=== PATIENT | male | born 1955 | race Hispanic/Latino ===

== ENCOUNTER 2019-12-01 14:44 | Outpatient (CLI) | payer OTHER, MEDICARE ==
--- NOTE | 2019-12-01 15:42 | RAD ---
PA AND LATERAL CHEST: HISTORY: Cough, flu-like symptoms. FINDINGS: Heart size is within normal limits. Postop sternotomy changes are seen. The aorta is mildly tortuou s. Some minimal interstitial changes are seen in the lung bases slightly more prominent in the left base. I cannot exclude this is very early infiltrate. IMPRESSION: Slightly increased interstitial markings in the bases, perhaps some infiltrative change in the left l ower lobe. Clinical correlation is suggested. Followup film is suggested as indicated. POS: RAAD
== END 2019-12-01 14:45 | disposition home or self-care (01) ==
LOC: SCSRAD 14:44
PROVIDERS: ATTEND Nurse Practitioner Family
DX: J40 Bronchitis, not specified as acute or chronic (principal); R68.89 Other general symptoms and signs; J98.4 Other disorders of lung
CPT/HCPCS: 71046

== ENCOUNTER 2019-12-01 21:31 | Emergency (ER) | payer OTHER, MEDICARE ==
[~2019-12-01 21:31] MED LIST: Iopamidol-370 76% 500 ML 1 ML ONE
[2019-12-01] MEDS ORDERED: Promethazine 25 MG TAB ONE (22:14)
[2019-12-01 22:24] LABS: #Basophils 0.1 thou/uL (0.0-0.2); #Eosinphils 0.4 thou/uL (0.0-0.7); #Lymphocytes 1.5 thou/uL (1.20-3.40); #Monocytes 0.7 thou/uL (0.11-0.59); #Neutrophils 10.7 thou/uL (1.40-6.50); %Basophils 0.4 % (0.0-1.0); %Eosinophils 3.2 % (0.0-10.0); %Lymphocytes 10.9 % (21.0-51.0); %Monocytes 4.9 % (0.0-10.0); %Neutrophils 80.6 % (42.0-75.0); Hemoglobin 12.8 g/dL (14.0-18.0); Mean Corpuscular HGB CONC 33.3 g/dL (32.0-36.0); Mean Corpuscular Hemoglobin 28.4 pg (27.0-31.0); Mean Corpuscular Volume 85.1 fL (78.0-98.0); Mean Platelet Volume 8.9 fL (7.4-10.4); Platelet Count 181 thou/uL (130-400); RBC Distribution Width 12.1 % (11.5-14.5); Red Blood Cell (RBC) Count 4.53 mill/uL (4.70-6.10); White Blood Cell (WBC) Count 13.2 thou/uL (4.8-10.8)
[2019-12-01 22:46] LABS: ALT (SGPT) 30 U/L (8-55); AST (SGOT) 18 U/L (5-34); Albumin 3.8 g/dL (3.4-4.8); Alkaline Phosphatase 260 U/L (40-110); Anion Gap 15 mmol/L (10-20); BUN (Urea Nitrogen) 34 mg/dL (8.4-25.7); Bilirubin, Total 0.5 mg/dL (0.2-1.2); Calc. Creatinine Clearance 0 mL/min (70-130); Calcium 9.6 mg/dL (7.8-10.44); Carbon Dioxide 24 mmol/L (23-31); Chloride 103 mmol/L (98-107); Estimated GFR-MDRD 43; Globulin 3.2 g/dL (2.4-3.5); Glucose 179 mg/dL (80-115); Lipase 22 U/L (8-78); Potassium 4.4 mmol/L (3.5-5.1); Sodium 138 mmol/L (136-145)
--- NOTE | 2019-12-01 23:44 | CT ---
CT ABDOMEN AND PELVIS WITH IV CONTRAST: 12/01/19 HISTORY: Abdominal pain, nausea, vomiting, diarrhea. COMPARISON: 11/13/15. Chronic changes of the lung bases again seen. The liver, spleen, pancreas, adrenal glands are normal. Cysts on the kidneys and scarring in the left superior pole are again noted. No free air, free fluid or lymphadenopathy is seen in the abdomen or pelvis. There are vascular calci fications without evidence of aneurysmal dilatation of the abdominal aorta. No calcified gallstones a re seen. There are degenerative changes in the spine. There is small bowel feces sign without significant bowel loop dilatation. A normal appearing appendi x is present. IMPRESSION: Probable developing/early small bowel obstruction. POS: OFF
== END 2019-12-02 00:50 | disposition home or self-care (01) ==
LOC: ERS 21:31
DX: A08.4 Viral intestinal infection, unspecified (principal); E86.0 Dehydration; I10 Essential (primary) hypertension; E11.9 Type 2 diabetes mellitus without complications; F03.90 Unspecified dementia, unspecified severity, without behavioral disturbance, psychotic disturbance, mood disturbance, and anxiety; F32.9 Major depressive disorder, single episode, unspecified; F41.9 Anxiety disorder, unspecified
CPT/HCPCS: 36415; 71046; 74177; 80053; 83690; 85025; 96360; Q0169; Q9967

== ENCOUNTER 2019-12-03 07:15 | Emergency (ER) | payer OTHER, MEDICARE ==
[2019-12-03 08:33] LABS: Hemoglobin 12.2 g/dL (14.0-18.0); Mean Corpuscular HGB CONC 33.2 g/dL (32.0-36.0); Mean Corpuscular Hemoglobin 28.2 pg (27.0-31.0); Mean Corpuscular Volume 84.7 fL (78.0-98.0); Mean Platelet Volume 8.4 fL (7.4-10.4); Platelet Count 165 thou/uL (130-400); RBC Distribution Width 12.2 % (11.5-14.5); Red Blood Cell (RBC) Count 4.33 mill/uL (4.70-6.10); White Blood Cell (WBC) Count 11.3 thou/uL (4.8-10.8)
--- NOTE | 2019-12-03 08:47 | RAD ---
CHEST 1 VIEW: Date: 12/03/2019 HISTORY: Altered mental status. Recent pneumonia. COMPARISON: Chest radiograph 2 days prior. FINDING: Lungs are hypoinflated with bibasilar atelectatic changes. No definite air space consolidation, pneum othorax, or effusion. Prior midline sternotomy. No acute osseous abnormality. IMPRESSION: Lung hypoinflation with bibasilar atelectasis. No evidence for pneumonia. POS: TPC
[2019-12-03 08:55] LABS: ALT (SGPT) 20 U/L (8-55); AST (SGOT) 14 U/L (5-34); Albumin 3.6 g/dL (3.4-4.8); Alkaline Phosphatase 215 U/L (40-110); Anion Gap 10 mmol/L (10-20); BUN (Urea Nitrogen) 19 mg/dL (8.4-25.7); Bilirubin, Total 0.5 mg/dL (0.2-1.2); CK (CPK) 39 U/L (30-200); Calc. Creatinine Clearance 0 mL/min (70-130); Calcium 9.1 mg/dL (7.8-10.44); Carbon Dioxide 30 mmol/L (23-31); Chloride 104 mmol/L (98-107); Estimated GFR-MDRD 72; Globulin 2.9 g/dL (2.4-3.5); Glucose 96 mg/dL (80-115); Lipase 24 U/L (8-78); Magnesium 1.8 mg/dL (1.6-2.6); Potassium 3.7 mmol/L (3.5-5.1); Protein, Total 6.5 g/dL (5.8-8.1); Sodium 140 mmol/L (136-145)
--- NOTE | 2019-12-03 08:55 | CT ---
BRAIN CT WITHOUT IV CONTRAST: HISTORY: Altered mental status, resolved, hypertension, hypoglycemia. FINDINGS: Scattered atrophy and some chronic white matter ischemic changes. Low-attenuation focal changes in t he right centrum semiovale region most consistent with old infarct change. No evidence of mass effec t or midline shift. 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 No mass or bleed. No old studies. POS: RAAD
[2019-12-03 09:08] LABS: Band 3 % (5-11); Eosinophils 12 % (0-10); Lymphocytes 9 % (21-51); MDiff Complete? YES; Monocytes 3 % (0-10); Neutrophil 70 % (42-75); Platelet Morphology Comment Appears Adequate; Platelet Satellitism SLIGHT; Polychromasia SLIGHT = 2-3 cells (100X) (0-2/hpf); Reactive Lymphocytes 1 % (0-10)
== END 2019-12-03 10:06 | disposition home or self-care (01) ==
LOC: ERS 07:15
DX: E11.649 Type 2 diabetes mellitus with hypoglycemia without coma (principal); B34.9 Viral infection, unspecified; I10 Essential (primary) hypertension; F03.90 Unspecified dementia, unspecified severity, without behavioral disturbance, psychotic disturbance, mood disturbance, and anxiety; F41.9 Anxiety disorder, unspecified; F32.9 Major depressive disorder, single episode, unspecified; Z79.899 Other long term (current) drug therapy; Z79.4 Long term (current) use of insulin
CPT/HCPCS: 36415; 36416; 70450; 71045; 80053; 82550; 83605; 83690; 83735; 84484; 85025; 93005